=== PATIENT | female | born 1995 | race Caucasian/White ===

== ENCOUNTER 2020-09-28 16:46 | Emergency (ER) | payer OTHER, SELFPAY ==
[2020-09-28 17:26] VITALS: BP 130/67; PULSE 89; RESP 16; TEMP 36.9; O2SAT 99; BMI 17.7
--- NOTE | 2020-09-28 18:02 | ED.GENADULT ---
HPI - General Adult General Chief complaint: General Medical Stated complaint: Cast removal Time Seen by Provider: 09/28/20 18:13 Source: patient Mode of arrival: other (Crutches) Limitations: no limitations History of Present Illness HPI narrative: 25-year-old female presents for left lower extremity cast removal. States that she missed her appointment with her surgeon earlier today and just wants her cast off. She does not recall what kind of surgery she had, will kind of fracture she had, and states that all of her appointments have been at [facility] and in [place]. She does not describe any fevers, chills, numbness to the toes, weakness, or any other concerning symptoms. Onset (ago): week(s) Location: left and lower extremity Related Data Allergies Allergy/AdvReac Type Severity Reaction Status Date / Time No Known Allergies Allergy Unverified 04/30/20 16:38 Review of Systems Review of Systems: Constitutional: No Fever, No Chills ENT/Mouth: No Ear Pain, No Hoarseness, No sore throat Eyes: No Eye Pain, No Swelling, No Redness, No Foreign Body Cardiovascular: No Chest Pain, No SOB Respiratory: No Cough, No Dyspnea Gastrointestinal: No Nausea, No Vomiting, No Diarrhea, No abdominal Pain Genitourinary: No Dysuria, No Hematuria Musculoskeletal: Positive cast to left lower extremity, No joint pain, No Myalgias, No Joint Swelling Skin: No Skin lacerations, No rash Neuro: No Weakness, No Numbness, No Paresthesias, No Loss of Consciousness, No Dizziness, No Headache Psych: No Anxiety/Panic, No Depression Heme/Lymph: no easy bruising, no Lymphadenopathy Endocrine: No Polyuria, No Polydipsia Yes all other systems are reviewed and are negative [facility] Past Medical History Attestation statement: The following information was validated with the patient. Source: old records reviewed Medical History No known health problems Physical Exam Vital Signs: Vital Signs: Last Vital Signs Temp 98.5 F 09/28/20 17:26 Pulse 89 09/28/20 17:26 Resp 16 09/28/20 17:26 BP 130/67 09/28/20 17:26 Pulse Ox 99 09/28/20 17:26 Body Mass Index 17.7 Appearance: Alert. Oriented X3. No acute distress. Eyes: Pupils equal, round and reactive to light. ENT: Pharynx normal. Neck: Normal inspection. Neck supple. CVS: Normal heart rate and rhythm. Pulses normal. Respiratory: No respiratory distress. Breath sounds normal. Abdomen: Soft and nontender. Skin: Skin warm and dry. Normal skin color. Normal skin turgor. Extremities: Cast to left lower extremity, brisk capillary refill to toes Neuro: No motor deficit. No sensory deficit. Course Course Course Narrative: 25-year-old female with no significant past medical history presents with request for cast removal because she missed her appointment with her surgeon earlier today. We do not have any of her records, she does not know what kind of surgery she had or what kind of fracture was repaired. Patient was strongly urged to follow-up with surgeon, for request was declined by this [employer], this case was discussed with ED attending and he agrees with this plan. Although patient was disappointed, she did understand. Patient verbalized understanding of and agrees to plan of care discharge home. Medical Decision Making Differential Diagnosis Differential Diagnosis: Request for cast removal Discharge Plan Discharge Clinical Impression: Cast in place on lower extremity Patient Disposition: Home, Self-Care Instructions: Cast Care (ED) Additional Instructions: You presented to the emergency department and requested a cast removal to the left lower extremity. At this time we are unable to complete your request. You must follow-up with your surgeon for this cast removal. Thank you for choosing this emergency department for evaluation. Please follow-up with primary care physician as needed. Return to the emergency department for any new, concerning, or worsening symptoms.
== END 2020-09-28 18:40 | disposition home or self-care (01) ==
PROVIDERS: Emergency Provider Internal Medicine
DX: Z47.89 Encounter for other orthopedic aftercare (principal)
CPT/HCPCS: 99283

== ENCOUNTER 2022-03-11 11:00 | Outpatient (REF) | payer OTHER, SELFPAY ==
[2022-03-11 11:42] LABS: COVID-19 Test Negative (Negative); IDNOW Serial# 08D9AD1C
== END 2022-03-11 11:01 | disposition home or self-care (01) ==
LOC: HO.LAB 11:00
PROVIDERS: Visit Provider Internal Medicine
DX: Z20.822 Contact with and (suspected) exposure to COVID-19 (principal)
CPT/HCPCS: 87635; C9803

== ENCOUNTER 2024-10-27 15:04 | Emergency (ER) | payer OTHER, SELFPAY ==
[2024-10-27 15:21] VITALS: BP 133/62; PULSE 82; RESP 16; TEMP 36.1; O2SAT 97; BMI 27.9
--- NOTE | 2024-10-27 15:24 | ED_ITS ---
HPI - Wound/Laceration General Chief Complaint: Wound/Laceration Stated Complaint: left pointer finger Time Seen by Provider: 10/27/24 15:49 Source: patient Mode of arrival: ambulatory Limitations: no limitations History of Present Illness ED Provider: Yulissa Desai PA-C HPI narrative: Patient is a 29 year old female with no known past medical history who presents to the ED for a laceration of her left index finger. She states she was closing a door with a broken glass window when a portion of broken glass made contact with her finger causing the laceration. She states this happened around 7pm on 10/26/2024. She has no other complaints at this time. Last tetanus booster unknown. Onset (ago): hour(s) Location: other (Volar aspect of left 4th digit) Patient tetanus UTD: No Context: accidental Associated symptoms: pain Treatments prior to arrival: bandage Related Data Previous Rx's ?Medication ?Instructions ?Recorded amoxicillin 875 mg-potassium 1 tab PO BID 10 days #20 tabs 10/27/24 clavulanate 125 mg tablet Allergies Allergy/AdvReac Type Severity Reaction Status Date / Time No Known Allergies Allergy Verified 10/27/24 15:26 Review of Systems Review of Systems: Yes all other systems are reviewed and are negative Constitutional: Constitutional: Reports no additional constitutional complaints, Denies chills, Denies fever(s) and Denies night sweats Eyes: Eyes: Reports no additional eye complaints, Denies blurry vision, Denies change in vision, Denies diplopia, Denies eye discharge, Denies loss of vision and Denies eye pain ENT: Denies dizziness Cardiovascular: Cardiovascular: Reports no additional cardiovascular complaints, Denies chest pain, Denies lightheadedness, Denies Loss of Consciousness and Denies dyspnea Respiratory: Respiratory: Reports no additional respiratory complaints and Denies dyspnea Gastrointestinal: Gastrointestinal: Reports no additional gastrointestinal complaints, Denies abdominal pain, Denies melena, Denies hematochezia, Denies change in bowel habits and Denies change in stool character Genitourinary: Genitourinary: Denies hematuria, Denies urinary frequency, Denies dysuria, Denies urinary incontinence, Denies urinary hesitancy and Denies urinary urgency Musculoskeletal: Musculoskeletal: Reports no additional musculoskeletal complaints, Denies numbness and Denies tingling Comments: left index finger laceration Neurologic: Denies dizziness, Denies loss of vision, Denies numbness and Denies tingling Psychiatric: Psychiatric: Reports no additional psychiatric complaints Endocrine: Endocrine: Reports no additional endocrine complaints Hematologic/Lymphatic: Hematologic/Lymphatic: Reports no additional hematologic/lymphatic complaints Allergic/Immunologic: Allergic/Immunologic: Reports no additional allergic/immunologic complaints [facility] Past Medical History Attestation statement: The following information was validated with the patient. Source: old records reviewed and nursing notes reviewed Medical History No known health problems Social History Social History Advance Directives: No Advance Directives Information Provided: Yes Physical Exam Vital Signs: Vital Signs: Last Vital Signs Temp 97 F 10/27/24 17:15 Pulse 82 10/27/24 17:15 Resp 16 10/27/24 17:15 BP 133/62 10/27/24 17:15 Pulse Ox 97 10/27/24 17:15 O2 Del Method Room Air 10/27/24 17:15 BMI result Body Mass Index 27.9 Const: General: cooperative, no acute distress, alert and awake Nutritional Appearance: well nourished Orientation/consciousness: patient oriented x3 Limitations: no limitations HEENT: Head: Yes normal to inspection and Yes atraumatic Ears: hearing grossly normal bilaterally and external ears normal General nose exam: Normal external nose present, no nasal discharge noted and no epistaxis Face and sinus: Yes normal facial exam, No abrasion and No laceration Mouth: Normal oral and palatal mucosa present, no drooling and no muffled voice Eyes: General: appearance normal, both eyes and all related structures Periorbital: periorbital findings normal Eyelids: Yes eyelids normal Conjunctivae: conjunctivae normal Pupils: Equal, round and reactive pupils present EOM: EOMs intact bilaterally Neck: Neck: Yes normal visual inspection, Yes full ROM and Yes no lymphadenopathy Chest: Chest palpation & inspection: normal inspection of the chest Resp: Effort & Inspection: normal respiratory effort and able to speak in complete sentences GI: Inspection: Yes normal to inspection Neuro: General: patient oriented x3, moves all extremities and CN's II-XI intact bilaterally Cranial nerves: Yes Equal, round and reactive pupils present Cognition (Neuro): normal cognition Extrem: General: Yes full ROM and Yes capillary refill normal Right upper extremity: Extremity exam: right hand (2cm laceration noted to the distal palmar aspect of the left 4th digit) Details: neuromotor exam normal, neurosensory exam normal, tendon exam normal, normal ROM of fingers and laceration Psych: Appearance: grossly normal Mental Status: mental status grossly normal Affect: normal affect Attitude: cooperative Thought process: Normal thought process present Thought content: Normal thought content present Insight: Good insight present (Psych) Course Course Course Narrative: This is a Rapid Medical Examination (RME) performed by Sharlene Finley PA-C in [facility]. Full HPI, ROS, assessment and treatment plan per primary provider in the Main ED. 29 yo female presents to the ER for evaluation of a laceration to the left index finger on a glass door last night 7pm. unknown tdap. Plan: clean wound, tdap, lac repair Medications Administered Discontinued Medications Generic Name Dose Route Start Last Admin Trade Name Freq PRN Reason Stop Dose Admin Diphtheria/Tetanus/Acell Pertussis 0.5 ml 10/27/24 15:59 10/27/24 16:13 Diphth,Pertus(Acell),Tet Adult 0.5 Ml Syringe IM 10/27/24 16:00 0.5 ml .ONCE ONE Administration Lidocaine HCl 10 ml 10/27/24 16:24 10/27/24 16:33 Lidocaine Hcl 1 % Mpf 5 Ml Vial SUBCUT 10/27/24 16:25 10 ml ONCE ONE Administration Medical Decision Making Medical Decision Making [facility] Narrative: Patient is a 29 year old assigned female at with no reported medical history presenting to the emergency department today with a left index finger laceration. Patient's physical exam was as noted in the physical exam portion of this note. I explained my physical exam findings to the patient. I answered all questions asked by the patient. Given the length of time the patient's wound has been open - will loosely approximate the wound edges. I placed 2 sutures in the wound, loosely approximating the wound edges, without incident. Patient's PMS was intact prior to and after suture placement. I stressed the importance of the patient NOT soaking the affected area, performing daily wound checks + dressing changes, and having the sutures removed in 7-10 days. I stressed the importance of the patient taking her medication as directed (either prescribed or as the over the counter packaging recommends). I stressed the importance of the patient following up with her primary care provider. I stressed the importance of the patient returning to the emergency department immediately if her symptoms were to worsen or if she were to develop any dizziness, shortness of breath, difficulty breathing, chest pain, blurry vision, loss of vision, nausea, vomiting, abdominal pain, fever, chills, back pain, or any other complaints. Patient verbalized agreement and understanding with this treatment plan and discharge Differential Diagnosis Differential Diagnoses: The differential diagnosis associated with the presentation includes Laceration Abrasion Admission/Observation Consideration of admission/observation: Escalation of care including admission/observation considered Patient would have been admitted to the hospital had her clinical presentation warranted hospital admission. Prescription Management I considered prescription management with: Antibiotic (given length of time from injury and mechanism of injury, prophylactic antibiotic prescribed. ) Procedures Laceration Laceration 1: Site: other (index finger) Side (If applicable): left Size (cm): 2 Description: linear Depth: simple, single layer Local Anesthetic: lidocaine 1% Amount of anesthesia used (mL): 10 Pre-repair: wound explored, irrigated extensively and deep structures intact Skin layer closed with: other (prolene) Size (cm): 5-0 Number of sutures: 2 Technique: simple, interrupted Discharge Plan Discharge Clinical Impression: Laceration Patient Disposition: Home, Self-Care Instructions: Care For Your Stitches (DC), Laceration (DC) Additional Instructions: Do NOT soak the affected area. Perform daily wound checks and dressing changes. Take your antibiotic as prescribed. Have your sutures (2) removed in 7-10 days. Your wound was not brought completely together intentionally given the length of time the wound has been present / open and the fragility of the wound edges. Follow up with your primary care provider. Return to the emergency department immediately if your symptoms worsen or if you develop any numbness, tingling, dizziness, shortness of breath, difficulty breathing, chest pain, blurry vision, loss of vision, nausea, vomiting, abdominal pain, fever, chills, back pain, or any other complaints. Please see the information below about our Patient Portal. If you are not yet enrolled in the [facility] Patient Portal, you will receive an enrollment email invitation following your visit to any [facility] setting. You may also self-enroll in the Patient Portal by visiting our website: [email or web address] The following information is required to access the Patient Portal: - Your [facility] Medical Record Number - Your personal home email address (must match what is in your electronic medical record, Registration staff can assist with this) - Name - Date of Capabilities of the Patient Portal: - Message some providers - View upcoming appointments - Access your health summary, medical history, and visit history - View current conditions and allergies - View procedure and lab results - View your medications, including guidelines, side effects, and precautions - Complete pre-appointment questionnaires requested by your provider - Ready summary reports of your office visits and procedures To access the Patient Portal Mobile Osmany, follow these directions: - Search Cameo in the Osmany Store or wishkicker Store - Download the Osmany - Search for [facility] - Enter your login/password Prescriptions: New amoxicillin-pot clavulanate 875-125 mg tablet 1 tab PO BID 10 Days Qty: 20 0RF Referrals: Artur Gonzales MD [Primary Care Provider] - Interventions: ED Discharge Assessment Last Done: 10/27/24 17:15 Discharge Date/Time: 10/27/24 17:16 Print Language: Vietnamese
[2024-10-27] MEDS: Diphth,Pertus(ACell),Tet Adult 0.5 ML SYRINGE IM (16:13)
[2024-10-27] MEDS: Lidocaine HCl 1 % MPF 5 ML VIAL 10 ML SUBCUT (16:33)
[2024-10-27 17:15] VITALS: BP 133/62; PULSE 82; RESP 16; TEMP 36.1; O2SAT 97
== END 2024-10-27 17:16 | disposition home or self-care (01) ==
PROVIDERS: Emergency Provider Emergency Medicine; PCP Family Medicine
DX: S61.217A Laceration without foreign body of left little finger without damage to nail, initial encounter (principal); W25.XXXA Contact with sharp glass, initial encounter; Y93.89 Activity, other specified; Y92.9 Unspecified place or not applicable; Y99.9 Unspecified external cause status; Z23 Encounter for immunization
CPT/HCPCS: 12001; 90471; 90715; 99282; 99284; J2003

== ENCOUNTER 2025-05-17 17:03 | Emergency (ER) | payer OTHER, SELFPAY ==
--- OUTSIDE RECORDS SUMMARY | 2025-01-29 06:30 | XMS_ITS ---
Author Organization [facility] Address [address] [place] [address] [address] [place], [place] [id number] Care Team Providers Care Tooth Cutter Pinion Name Role Phone YAYA SCOTT Unavailable [phone] REASON FOR VISIT depo start/STI testing Social History Sex Assigned At : Social History Observation Description Sex Assigned At Female Encounters Encounter Location Date Provider Diagnosis [facility] [address] [place], [place] [phone] SCOTT JAVIER Plan Of Treatment No Information Progress Notes * Marietta SONI LDOB:1995 (29 yo F)Acc No.[id number]:01/29/2025 Progress Notes Patient: Marietta Ferguson Provider: Alexander JAVIER :1995 A ge:29 Y S ex:Female Date:01/29/2025 Address:[address] [place] [address], [address] [place], [place] [id number] Subjective: * Chief Complaints: * d epo start/STI testing Billing Information: * Procedure Codes: * Electronic signature of GHAZAL JAVIER CNM on 05/17/2025 at 09:24 PM EDT Sign off status: Pending * Provider: Alexander JAVIER Date: 0 01/29/2025 Generated for Bhavik rosas/Peace/eTmarkoitting on: 1 09:24 PM EDT
--- OUTSIDE RECORDS SUMMARY | 2025-02-19 11:45 | XMS_ITS ---
Author Organization [facility] Address [address] [facility] [address] [place], [place] [id number] Care Team Providers Care Borough Coordinator Name Role Phone YAYA SCOTT Unavailable [phone] REASON FOR VISIT depo start Social History Sex Assigned At : Social History Observation Description Sex Assigned At Female Encounters Encounter Location Date Provider Diagnosis [facility] [address] [place], [place] [phone] 04/2025 SCOTT JAVIER Plan Of Treatment No Information Progress Notes * YULISAMarietta LDOB:1995 (29 yo F)Acc No.[id number]:02/19/2025 Progress Notes Patient: Marietta Ferguson Provider: Alexander JAVIER :1995 A ge:29 Y S ex:Female Date:02/19/2025 Address:[address] [place] [address], [address] [place], [place] [id number] Subjective: * Chief Complaints: * D epo start * Electronic signature of GHAZAL JAVIER CNM on 05/17/2025 at 09:24 PM EDT Sign off status: Pending * Provider: Alexander JAVIER Date: 0 02/19/2025 Generated for Bhavik rosas/Peace/[place] on: 1 09:24 PM EDT
--- OUTSIDE RECORDS SUMMARY | 2025-03-28 11:15 | XMS_ITS ---
Author Organization [facility] Address [address] [place] [address] [address] [place], [place] [id number] Care Team Providers Care Electronic Die Maker Name Role Phone SCOTT JAVIER Unavailable [phone] REASON FOR VISIT Depo Social History Sex Assigned At : Social History Observation Description Sex Assigned At Female Encounters Encounter Location Date Provider Diagnosis [facility] [address] [place], [place] [phone] SCOTT JAVIER Plan Of Treatment No Information Progress Notes * ZACHARIAH Zuhairdora LDOB:1995 (29 yo F)Acc No.[id number]:03/28/2025 Progress Notes Patient: Marietta Ferguson Provider: Alexander JAVIER :1995 A ge:29 Y S ex:Female Date:03/28/2025 Address:[address] [place] [address], [address] [place], [place] [id number] Subjective: * Chief Complaints: * D epo Billing Information: * Procedure Codes: * Electronic signature of GHAZAL JAVIER CNM on 05/17/2025 at 09:24 PM EDT Sign off status: Pending * Provider: Alexander JAVIER Date: 0 03/28/2025 Generated for Bhavik rosas/Peace/[place] on: 1 09:24 PM EDT
--- OUTSIDE RECORDS SUMMARY | 2025-05-12 12:45 | XMS_ITS ---
Author Organization [facility] Address [address] [facility] [address] [place], [place] [id number] Care Team Providers Care Air Traffic Control Manager Name Role Phone SCOTT JAVIER Unavailable [phone] Results Component Value Reference Range Notes Chlamydia/GC Amplification-1 [id number] Reviewed date:05/14/2025 10:13:11 AM Interpretation:Negative Performing Lab:[facility], [address], [address], [place], Phone - [phone], Director - [facility] Notes/Report: Clinical Information:SRC:urine Chlamydia trachomatis, RAQUEL Negative Negative Neisseria gonorrhoeae, RAQUEL Negative Negative REASON FOR VISIT Counseling/Testing Medications Medication SIG (Take, Route, Frequency, Duration) Notes Start Date End Date Status valACYclovir HCl 500 MG Tablet 1 tablet Orally 1 tablet every 12 hours for 3 days per outbreak (5 treatments); Duration: 3 days Not-Taking/PRN Naproxen Not-Taking /PRN Cyclobenzaprine HCl Not-Taking/PRN Tylenol with Codeine #3 Not-Taking/PRN Gabapentin Not-Takin g/PRN Social History Sex Assigned At : Social History Observation Description Sex Assigned At Female Social History HIV Risk Assessment Social Info Question Answer Notes Additional Questions Is an HIV Risk Asse ssment being conducted? No Reproductive Life Plan: Social Info Question Answer Notes Reproductive Life Plan: Do you want to have chil dren? Yes, I want to have children How long would you like to wait until you/your partner becomes ? 1 - 5 years How sure are you that you will be able to use your control method without any problems? Very sure Human Trafficking: Social Info Question Answer Notes Human Trafficking Experienced: No PrEP for HIV: Social Info Question Answer Notes PrEP for HIV Is the client maria dolores cooper in beginning/continuing PrEP for HIV? No Sexual History: Social Info Question Answer Notes Sexual History: Sexual History Reviewed: Partner s, Practices, Protection/Past STIs, Prevention of Currently sexually active? Yes Sexually active with: Men Number of male partners 1 Your sexual activities include: oral intercourse, vaginal intercourse Reviewed types of EC? No Do you use condoms? No Date of last unprotected intercourse: 04/26/2025 Number of partners in past 3 months: 1 Number of partners in past year: 2 What is the client's primary method to prevent at the end of their visit? Withdrawal Does your partner(s) currently have any STIs? unsure Completed Gardasil vaccination series? No Counseling Provided: Social Info Question Answer Notes Counseling Provided Please indicate the length of time, in minutes, that counseling was provided. 7 Counseling Was Provided By: neri Drugs/Alcohol: Social Info Question Answer Notes Drug/Alcohol Use Do you or have you used drugs? Yes, i n the past When you used, by which route did you take drugs? Smoking Which drug(s) did you smoke? Marijuana Do you or have you used alcohol? No Food Access: Social Info Question Answer Notes Food Access The Client's current access to food is Secure Food Access Relationships: Social Info Question Answer Notes Relationships Has the client exper ienced any of the following: Client has never experienced harmful relationships Housing Social Info Question Answer Notes Housing The client's current living situation is: stable housing Tobacco Use: Social Info Question Answer Notes Tobacco Use: Do you/have you used tobacco? No Tobacco Smoking Status Unknown if ever smoked Encounters Encounter Location Date Provider Diagnosis [address] [phone] 05/12/2025 SCOTT JAVIER Encounter for scre ening for infections with a predominantly sexual mode of transmission Z11.3 ; Counseling, unspecified Z71.9 and Other problems related to lifestyle Z72.89 Assessments Encounter Date Diagnosis (ICD Code) Assessment Notes Treatment Notes Treatment Clinical Notes Section Notes 05/12/2025 Encounter for screening for infections with a predominantly sexual mode of transmission (ICD-10 - Z11.3) Reviewed [facility] screening recommendations and [facility] Encouraged safe sex practices. Advised to call for evaluation if any symptoms arise. Reviewed method of communicating results to patient. 05/12/2025 Counseling, unspecified (ICD-10 - Z71.9) 05/12/2025 Other problems related to lifestyle (ICD-10 - Z72.89) Plan Of Treatment Treatment Notes Assessment Notes Encounter for screening for infections with a predominantly sexual mode of transmission Reviewed STI screening recommendations a nd available testing through [facility]. Encouraged safe sex practices. Advised to call for evaluation if any symptoms arise. Reviewed method of communicating results to patient. Next Appt Details Follow Up: prn, Reason: History and Physical Notes * HPI (History of Present Illness) Category Sub-Category Detail Notes Category Not es Visit Narrative Current form of nick h control: w/d Clt presenting for routine asymptomatic STI screen. Has concerns regarding partner's status. Defers scheduling appointment for further testing. Will wait until labs are resulted Presenting Symptoms: none LMP: 05/04/2025 Last date of UPI: 04/26/2025 Examination Category Sub-Category Detail Notes Category Not es General Examination GENERAL APPEARANCE: pleasant, in n o acute distress PSYCH: alert, oriented Progress Notes * Marietta SONI LDOB:1995 (29 yo F)Acc No.[id number]:05/12/2025 Progress Notes Patient: Marietta Ferguson Provider: Alexander JAVIER :1995 A ge:29 Y S ex:Female Date:05/12/2025 Address:[address] [place], [place] [id number] Subjective: * Chief Complaints: * C ounseling/Testing * HPI: V isit Narrative: Current form of control: w /d. Presenting Symptoms: n one. LMP: 0 05/04/2025. Last date of UPI: 0 04/26/2025. Clt presenting for routine asymptomatic STI screen. Has concerns regarding partner's status. Defers scheduling appointment for further testing. Will wait until labs are resulted. * Social History: F ood Access: F ood Access T he Client's current access to food is S ecure Food Access H ousing: H ousing T he client's current living situation is:?stable housing R eproductive Life Plan: R eproductive Life Plan D o you want to have children? Y es, I want to have children H ow long would you like to wait until you/your partner becomes ? 1 - 5 years H ow sure are you that you will be able to use your control method without any problems? V walt sure S exual History: S exual History S exual History Reviewed: P artners, Practices, Protection/Past STIs, Prevention of C urrently sexually active? Y es S exually active with: M en N umber of male partners 1 Y our sexual activities include: o ral intercourse, vaginal intercourse R eviewed types of EC? N o D o you use condoms? N o D ate of last unprotected intercourse: 0 04/26/2025 N umber of partners in past 3 months: 1 N umber of partners in past year: 2 W hat is the client's primary method to prevent at the end of their visit? W ithdrawal D oes your partner(s) currently have any STIs??unsure C ompleted Gardasil vaccination series? N o H IV Risk Assessment: A dditional Questions I s an HIV Risk Assessment being conducted??No P rEP for HIV: P rEP for HIV I s the client interested in beginning/continuing PrEP for HIV? N o R elationships: R elationships H as the client experienced any of the following: Trina paolo has never experienced harmful relationships H uman Trafficking: H uman Trafficking E xperienced: N o T obacco Use: T obacco Use D o you/have you used tobacco? N o T obacco Smoking Status U nknown if ever smoked D rugs/Alcohol: D rug/Alcohol Use D o you or have you used drugs? Y es, in the past W hen you used, by which route did you take drugs? S moking W hich drug(s) did you smoke? M arijuana D o you or have you used alcohol? N o C ounseling Provided: Trina tomas Provided P lease indicate the length of time, in minutes, that counseling was provided. 7 C ounseling Was Provided By: polo Macario ocial History Verified. * Medications: N ot-Taking/PRNGabapentin Tylenol with Codeine #3 Cyclobenzaprine HCl Naproxen valACYclovir HCl 500 MG Tablet 1 tablet Orally 1 tablet every 12 hours for 3 days per outbreak (5 treatments) Not-Taking/PRN Gabapentin Not-Taking/PRN Tylenol with Codeine #3 Not-Taking/PRN Cyclobenzaprine HCl Not-Taking/PRN Naproxen Not-Taking/PRN valACYclovir HCl 500 MG Tablet 1 tablet Orally 1 tablet every 12 hours for 3 days per outbreak (5 treatments) DiscontinuedSlynd 4 MG Tablet 1 tablet Orally Once a day metroNIDAZOLE 500 MG Tablet 1 tablet Orally Twice a day, every 12 hours valACYclovir HCl 1 GM Tablet 1 tablet Orally Once a day for five days per episode Levonorgestrel 1.5 MG Tablet as directed Orally valACYclovir HCl 1 GM Tablet 1 tablet Orally Once a day for 5 days per outbreak (6 treatments) Depo-Provera 150 MG/ML Suspension 1 ml Intramuscular Every 13-15 weeks Depo-Provera 150 MG/ML Suspension 1 ml Intramuscular Every 13-15 weeks Plan B One-Step 1.5 MG Tablet 1 tablet Orally At once Cryselle-28 0.3-30 MG-MCG Tablet 1 tablet Orally Daily Discontinued Slynd 4 MG Tablet 1 tablet Orally Once a day Discontinued metroNIDAZOLE 500 MG Tablet 1 tablet Orally Twice a day, every 12 hours Discontinued valACYclovir HCl 1 GM Tablet 1 tablet Orally Once a day for five days per episode Discontinued Levonorgestrel 1.5 MG Tablet as directed Orally Discontinued valACYclovir HCl 1 GM Tablet 1 tablet Orally Once a day for 5 days per outbreak (6 treatments) Discontinued Depo-Provera 150 MG/ML Suspension 1 ml Intramuscular Every 13-15 weeks Discontinued Depo-Provera 150 MG/ML Suspension 1 ml Intramuscular Every 13-15 weeks Discontinued Plan B One-Step 1.5 MG Tablet 1 tablet Orally At once Discontinued Cryselle-28 0.3-30 MG-MCG Tablet 1 tablet Orally Daily Objective: * Examination: G eneral Examination: GENERAL APPEARANCE: p leasant, in no acute distress. PSYCH: a lert, oriented. Assessment: * Assessment: 1. E ncounter for screening for infections with a predominantly sexual mode of transmission - Z11.3 (Primary) 2 . C ounseling, unspecified - Z71.9 3 . O ther problems related to lifestyle - Z72.89 Plan: * Treatment: Value Reference Range C hlamydia trachomatis, RAQUEL Negative Negative - * N eisseria gonorrhoeae, RAQUEL Negative Negative - * This lab was reviewed by JIHAN JARAMILLO on 05/14/2025 at 10:13 AM EDT Notes: Reviewed STI screening recommendations and available testing through [facility]. Encouraged safe sex practices. Advised to call for evaluation if any symptoms arise. Reviewed method of communicating results to patient. ??? * Procedure Codes: 8 7491 Chlamydia - Amplified [id number] Gonorrhea - Amplified probe * Follow Up: p rn Billing Information: * Visit Code: 68585 Existing - Counseling (IN USE). * Procedure Codes: 98405 Chlamydia - Amplified probe. 97715 Gonorrhea - Amplified probe. * Sign off status: Completed true * Provider: Alexander JAVIER Date: 0 05/12/2025 Generated for Bhavik rosas/Peace/[place]ma on: 1 09:24 PM EDT
[2025-05-17 17:12] VITALS: BP 137/67; PULSE 87; RESP 20; TEMP 36.4; O2SAT 100; BMI 24.5
--- NOTE | 2025-05-17 17:18 | ED.GENADULT ---
HPI - General Adult General Chief complaint: Back Pain/Injury Stated complaint: bilat hip pain Related Data Previous Rx's ?Medication ?Instructions ?Recorded amoxicillin 875 mg-potassium 1 tab PO BID 10 days #20 tabs 10/27/24 clavulanate 125 mg tablet Allergies Allergy/AdvReac Type Severity Reaction Status Date / Time No Known Allergies Allergy Verified 05/17/25 17:16 PMFSH Past Medical History Medical History No known health problems Social History Social History Advance Directives: No Advance Directives Information Provided: No Do you have a plan to hurt others: No Plan Physical Exam ED Vital Signs: Vital Signs - 24 hr 05/17/25 17:12 Temperature 97.5 F Pulse Rate 87 Respiratory Rate 20 Blood Pressure 137/67 Pulse Oximetry 100 Oxygen Delivery Method Room Air BMI result Body Mass Index 24.5 Course Course Course Narrative: Medical screening exam performed. Please refer to detailed history, exam, evaluation, and management by primary provider. Worsening of chronic low back and hip pain. Discharge Plan Discharge Clinical Impression: Back pain Patient Disposition: Left W/O Completing Treatment Prescriptions: No Action amoxicillin-pot clavulanate 875-125 mg tablet 1 tab PO BID 10 Days Qty: 20 0RF Discharge Date/Time: 05/17/25 21:23
--- NOTE | 2025-05-17 21:22 | PC.NURSE ---
Called pt for bed assignment at 2100, no answer, pt LWCT ore charger Jasmin made aware.
--- OUTSIDE RECORDS SUMMARY | 2025-05-17 21:24 | XMS_ITS ---
Author Name [facility] Organization Unknown Care Team Organization Name Specialty Phone Email Start Date End Da [facility] Ml Rosario [facility] 06/21/2022
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
--- OUTSIDE RECORDS SUMMARY | 2025-05-17 21:25 | XMS_ITS | Clinical Summary ---
Author Organization [facility] Address [address] [facility] [address] [place] [phone] Phone Care Team Providers Care Tribal Delegate Name Role Phone Pcp, Unknown Primary Care Provider Unavailabl e Allergies No known active allergies Medications cyclobenzaprine (FLEXERIL) 10 MG tablet Take 10 mg by mouth nightly at bedtime as needed. 05/30/2022 Active gabapentin (NEURONTIN) 300 MG capsule Take 300 mg by mouth 3 (three) times a day. 09/30/2021 Active valACYclovir (VALTREX) 1000 MG tablet Take 1 tablet by mouth daily. Active oxyCODONE 5 MG immediate release tablet Take 1 tablet (5 mg total) by mouth every 4 (four) hours as needed. Can partial fill 12 tablet 03/02/2023 Active Immunizations Immunization Administration Dates Next Due COVID-19 (Pre-06/05) Pfizer Vaccine, mRNA, PF 03/29/2021 DTP 1996,1996 DTaP 08/28/2001,09/16/1998,02/20/1997 HKaH-Vcv-VDK 01/13/1998, 7,1996,10/25 HPV,quadrivalent 09/04/2008,11/05/2007, 7 Hepatitis B 02/20/1997,1996,1996 INFLUENZA, SPLIT VIRUS, TRIVALENT PF 06/19/2014, 05/16/2013 INFLUENZA, SPLIT VIRUS, TRIV ALENT W/ PRESERVATIVE IM 06/01/2015,05/19/2011,08/23/2010,07/20 IPV 08/28/2001 Influenza Quadrivalent MDCK Preservative Free IM 10/01/2018 MMR 08/28/2001,10/16/1997 Meningococcal MCV4P 11/19/2009,10/16/2008 Pneumococcal polysaccharide PPSV23 10/01/2018 Polio - OPV 02/20/1997,1996,1996 Tdap 05/26/2018,11/19/2009,11/05/2007 Varicella 10/16/2008,10/12/1998 Social History Tobacco Use Types Packs/Day Years Used Date Smoking Tobacco: Never Smokeless Tobacco: Never Tobacco Cessation:Counseling Given: Not Answered Alcohol Use Standard Drinks/Week Comments Yes 0 (1 standard drink = 0.6 oz pur e alcohol) Education Answer Date Recorded Are you interested in more education? Not on solis e 12/10/2022 Are you concerned about learning? Not on file 12/10/2022 No 12/10/2022 No 12/10/2022 Digital Access Answer Date Recorded No 01/08/2023 No 01/08/2023 Reliable internet access at home? Not on file 01/08/2023 Device with a working camera? Not on file Intimate Partner Violence Answer Date R ecorded Are you denied basic needs s uch as food, clothing, or medical care? No 01/15/2024 In the past 12 months have y ou been in a relationship with a person who hurts, threatens, or tries to control you? No 01/15/2024 Are you denied basic needs s uch as food, clothing, or medical care? No 01/15/2024 In the past 12 months have y ou been in a relationship with a person who hurts, threatens, or tries to control you? No 01/15/2024 Comments Unknown Sex and Gender Information Value Date Recorded Sex Assigned at Female 01/15/2024 1:21 PM EDT Legal Sex Female 3:04 PM EDT Gender Identity Female 01/15/2024 1:21 PM EDT Sexual Orientation Straight 01/15/2024 1: 21 PM EDT Last Filed Vital Signs Vital Sign Reading Time Taken Comments Blood Pressure 112/65 03/02/2023 9:05 PM EDT Pulse 64 03/02/2023 9:05 PM EDT Temperature 36.6 C (97.9 F) 03/02/2023 9:05 PM EDT Respiratory Rate 16 03/02/2023 9:05 PM EDT Oxygen Saturation 98% 03/02/2023 9:05 PM EDT Inhaled Oxygen Concentration - - Weight 81.6 kg (180 lb) 03/02/2023 7:05 PM EDT Height 175.3 cm (5' 9 ) 03/02/2023 7:05 PM EDT Body Mass Index 26.58 03/02/2023 7:05 PM EDT Plan of Treatment Health Maintenance Due Date Last Done Comments DEPRESSION SCREENING 2008 HEPATITIS C SCREENING 2014 HIV ONE-TIME SCREENING (18-65 YEARS) 2014 PAP SMEAR 2017 INFLUENZA VACCINE (#1) 2025 9, 06/01/2015, 06/19/2014, Additional history exists COVID-19 VACCINE ( season) 2025 03/29/2021 Adult Td,Tdap Booster 05/26/2028 05/26/2018 , 11/19/2009, 11/05/2007 HIB VACCINES Completed 01/13/1998, 02/11, 1996, Additional history exists MENINGOCOCCAL VACCINES (ACWY) Aged Out 11/19/2009, 10/16/2008 No longer eligibl e based on patient's age to complete this topic PNEUMOCOCCAL VACCINES (0-49 years) Aged Out 10/01/2018 No longer eligible based on patient's age to complete this topic SMOKING STATUS SCREENING (Once After 26 Yrs) Completed 01/15/2024 HEPATITIS A VACCINES Aged Out No long er eligible based on patient's age to complete this topic MENINGOCOCCAL VACCINES (B) Aged Out N o longer eligible based on patient's age to complete this topic Medical Devices Not on file Insurance [facility] [employer] [facility] [employer] [facility] [employer] [facility] Care Teams Tribal Delegate Relationship Specialty Start Date End Date Pcp, Unknown PCP - General 03/02/23 Additional Source Comments The information contained in this document represents components of the legal health record. It is not the complete legal health record.[facility]
== END 2025-05-17 21:23 | disposition left against medical advice (07) ==
LOC: HO.ED 21:22
PROVIDERS: Emergency Provider Emergency Medicine; PCP Family Medicine
DX: M54.9 Dorsalgia, unspecified (principal); Z53.21 Procedure and treatment not carried out due to patient leaving prior to being seen by health care provider
CPT/HCPCS: 99281